=== PATIENT | male | born 1970 | race Caucasian/White ===

== ENCOUNTER → 2024-10-25 | Day surgery (SDC) | payer MEDICAID ==
[~2024-10-25] VITALS: Ht 167.6 cm; Wt 81.6 kg
[~2024-10-25] MED LIST: AMLO10TA80 PO; ATOR40TA70 PO; BUPIVACAINE HCL/PF 0.5% (5MG/ML) 10ML ONE; DEXAMETHASONE 4MG/ML 1ML VIAL IV PRN; ETOMIDATE 2MG/ML 10ML VIAL IV ONE; FENTANYL CITRATE/PF 50MCG/ML 5ML VIAL ONE; GLYCOPYRROLATE 0.2 MG/ML 2ML VIAL IV PRN; GLYCOPYRROLATE 0.2 MG/ML 2ML VIAL ONE; HYDRALAZINE 20MG/ML VIAL IV PRN; HYDROMORPHONE HCL/PF 1MG/ML INJ IV PRN; LABETALOL 5MG/ML 4ML INJ IV PRN; LACTATED RINGERS 1,000 ML IV SCH; LISI-186 PO; MIDAZOLAM HCL 2 MG/2 ML VIAL ONE; NEOSTIGMINE METHYLSULFATE 1MG/ML 10 ML VIAL ONE; ONDANSETRON HCL 4MG/2ML INJ IV PRN; ROCURONIUM BROMIDE 10MG/ML VIAL 5ML IV ONE; SKIN ADHESIVE 0.7 GM EA TOP ONE
[2024-10-25] MEDS: HYDROMORPHONE HCL/PF 1MG/ML INJ IV PRN (11:22)
[2024-10-25 12:02] VITALS: BP 111/74; PULSE 83; RESP 18
[2024-10-25] MEDS: ACETAMINOPHEN WITH CODEINE 300/30MG TABLET PO SCH (12:02)
[2024-10-25] MEDS: BUPIVACAINE HCL 0.5% 175 ML in ON-Q PM013 DRUG DELIV DEVICE 1 EA IR NR (12:42)
== END | disposition home or self-care (01) ==
LOC: OR 07:36
PROVIDERS: ATTEND Surgery
DX: K40.90 Unilateral inguinal hernia, without obstruction or gangrene, not specified as recurrent (principal); I10 Essential (primary) hypertension; E78.5 Hyperlipidemia, unspecified; Z79.899 Other long term (current) drug therapy; Z98.890 Other specified postprocedural states
CPT/HCPCS: 49505; 82962; J3010; J0665; J3490 ×4; J2250; J1171; J2710; C1781